=== PATIENT | female | born 1940 | race Caucasian/White ===

== ENCOUNTER → 2017-11-24 | Outpatient (CLI) | payer OTHER ==
[~2017-11-24] MED LIST: ALLEGRA ALLERG180 MG PO; CALCIUM 500 +1 EAC5 PO; COLACE100 MG PO; CYCLOBENZAPRINE10 MG PO; DIAZEPAM2 MG PO; DICLOFENAC SODI75 MG PO; EVISTA PO; HYDROCHLOROTHIA25 M2 PO; IBUPROFEN 800800 M1 PO; IRON PO; KLOR-CON 1010 MEQ PO; LEVOXYL175 MCG PO; MERCAPTOPURINE50 MG PO; METHADONE HCL 110 M1 PO; MOBIC7.5 MG PO; NEURONTIN 300300 M1 PO; NORCO 5-325 TA1 EACH PO; OXYCODONE HCL5 M1 PO; REQUIP 0.25 M0.25 MG PO; TRAMADOL 50 MG50 MG PO; VERAPAMIL E.R240 M1 PO; VITAMIN D1000 UNI1 PO
--- NOTE | 2017-12-13 08:16 | PAINCON ---
[address] [address] PAIN MANAGEMENT CONSULTATION Name: OSIEL WHALEN Room: [facility] NAILA IniguezChris#: [id number] Admission: 11/24/17 Attend Phys: Daniella Batista MD Discharge: Date of : 36 Report #: [id number] THIS REPORT FOR: //name// CC: Donn Mclean DATE OF SERVICE: 11/24/2017 PRIMARY CARE PHYSICIAN: Donn Olivera DO CHIEF COMPLAINT: Sciatic pain in the leg. HISTORY OF PRESENT ILLNESS: The patient is a 77-year-old female who has been referred to the Pain Clinic for evaluation of pain involving her right knee and back. The patient states that she has been having pain since about 2015. She had been treated on a regular basis with prednisone. Medication has been tapered. Since the time of taper, she has noted some worsening of pain and discomfort. It involves her low back as well as down into her knees. She rates it as a 7/10 today. It can rise to the level of 9. It does affect her ability to engage in activities of daily living. Pain is made worse when she is lying down. Seems somewhat improved when she sits up. Describes it as continuous, aching, pulling, throbbing, sharp and stabbing. The patient has had some pain in the left leg after a spiral fracture in 2011. She has been contemplating right hip replacement. She has tried ibuprofen with no significant improvement. Notes pain that is going down the outside of her leg as well as some pain on the inner aspect of her leg. She is having more difficulty ambulating because of the pain. She does have some problems with dental caries in the past. ALLERGIES: SULFA, CLARITIN. MEDICATIONS: 1. Calcium, vitamin D3 500 mg tablets, vitamin D 1000 units. 2. Voltaren 75 mg b.i.d. 3. Rosetta 180 mg. 4. Gabapentin 300 mg capsules, total of 600 mg t.i.d. 5. Hydrochlorothiazide 25 mg. 6. Ibuprofen 800 mg q.8 hours p.r.n. 7. Levothyroxine 0.175 mg daily. 8. Mercaptopurine 50 mg daily. 9. Potassium 10 mEq, total of 20 mEq t.i.d. 10. Evista 60 mg daily. 11. Ultram 50 mg q.8 hours p.r.n. 12. Verapamil ER 240 mg daily. 13. Iron 65 [place] [address] PAIN MANAGEMENT CONSULTATION Name: OSIEL WHALEN Room: [facility]#: [id number] Admission: 11/24/17 Attend Phys: Daniella Batista MD Discharge: Date of : 36 Report #: [id number] PAST MEDICAL HISTORY: 1. Thyroid problems, hypothyroidism. 2. Dizziness. 3. Hypertension. 4. Irregular heartbeat. 5. Hepatitis/jaundice. 6. Arthritis of the right hip, chronic right hip pain. 7. Generalized anxiety disorder. 8. Osteopenia. 9. Adenoma of the colon. 10. Hyperlipidemia. 11. Allergic rhinitis. PAST SURGICAL HISTORY: Cholecystectomy, tonsillectomy, ORIF left tibia 2011, left knee scope 2011. SOCIAL HISTORY: She is . 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 Positive cigarette smoking in the past, quit in 2009. Alcohol, rarely used. No substance abuse. REVIEW OF SYSTEMS: Twelve-point indicates fatigue, wears glasses, hearing loss, earaches, chronic sinus problems, sore throat/voice change, heart trouble, palpitations, loss of appetite, frequent diarrhea, frequent urination, heat intolerance, thyroid disease, joint pain, joint stiffness, weakness of the muscles around the joints, muscle cramps, difficulty walking, hair changes, lightheadedness, dizziness, numbness and tingling in the feet, past transfusions. RADIOLOGY: Pelvis AP only right hip. AP view of the pelvis, no acute pelvis or hip fracture is identified. Right hip demonstrate severe degeneration with complete loss of joint space with irregularity of the articular surface as well as subcondylar sclerosis and cyst formation. The left hip demonstrates evidence of narrowing of the medial joint space. Impression, severe right hip degenerative changes. No acute osseous trauma, injury identified. Right hip and pelvis, AP of the knees and tunnel view weightbearing demonstrate on the right knee significant tricompartmental degenerative changes. No significant fracture or dislocation. No subluxation. Valgus alignment. The lateral view has complete loss of joint space with a moderate knee joint effusion. The patella tracks laterally. The contralateral knee on AP has [id number] medial degenerative changes. These images taken were reviewed in the office of Kary Downs and Jackie, [place] [facility]. Fluoroscopic guidance performed on 05/16/2017 indicate a successful fluoroscopic-guided right hip therapeutic injection. The patient also had a fluoroscopic therapeutic injection dated 02/02/2017 [place] [address] PAIN MANAGEMENT CONSULTATION Name: OSIEL WHALEN Room: [facility] Petty#: [id number] Admission: 11/24/17 Attend Phys: Daniella Batista MD Discharge: Date of : 38 Report #: [id number] PAIN CLINIC ASSESSMENT: 1. This patient is being treated for osteoarthritis, particularly involving the hip. 2. Height 66 inches, weight 220 pounds, pain intensity 7-8. 3. Fall risk. The patient has fallen in the last 3 months. Does complain of some dizziness and vertigo, does need assistance with walking and standing, does feel that she can move around safely, is able to perform activities of daily living. 4. The patient is not on a blood thinner. 5. The patient is being treated for hypertension. 6. Opioid greater than 6 weeks. The patient is using tramadol medication p.r.n. 7. Functional assessment tool. 8. Recreational drug use. Denies recreational drug use. 9. Tobacco. The patient stopped use of tobacco in 2009. 10. Alcohol. The patient rarely uses alcoholic beverage. PHYSICAL EXAMINATION: GENERAL: The patient is a well-developed female. She is not in any appreciable distress. Speech is fluent. HEENT: Some edema in the lower eyelid area. Extraocular eye muscles intact. Nonicteric. Hearing generally within normal limits. NECK: Without adenopathy. Good range of motion. HEART: Negative for chest pain, palpitations, tachycardia. RESPIRATORY: Negative for cough, dyspnea. ABDOMEN: Nontender. EXTREMITIES: Upper extremity muscle strength is judged to be 5/5 for the major muscle groups of the upper extremity without significant neurologic changes. Coat Room Attendant strength within normal limits. Lower extremity, the patient with difficulty ambulating secondary to pain and discomfort involving the right hip. Flexion caused increased pain with some internal pain with rotation internally and externally in the hip. Pain radiation down into the leg and hip area with walking. Straight leg raise negative. IMPRESSION: 1. Right hip pain. 2. Thyroid disease. 3. History of dizziness. 4. Hypertension. 5. Irregular heartbeat. 6. History of hepatitis/jaundice. 7. History of ORIF left tibia in 2011. 8. Left knee surgery in 2011. RECOMMENDATIONS: The patient is considering having surgery[place] [address] PAIN MANAGEMENT CONSULTATION Name: KOBYOSIEL J Room: [facility].#: [id number] Admission: 11/24/17 Attend Phys: Daniella Batista MD Discharge: Date of : 38 Report #: [id number] will have the patient try gabapentin and note its efficacy. Possibility of the lowest amount of opioid, which might be beneficial at this juncture will be considered. She will continue with tramadol 50 mg 1 p.o. q.8 hours p.r.n. The patient will continue to monitor her GI tract in regards to chronic use of ibuprofen. States that her prednisone type medication has been decreased. This would be one of the reasons for the increased pain and discomfort, which she is experiencing. Hopefully, things will start to settle down and become less problematic. She will follow up in the Pain Clinic and we will reevaluate her for continued options and treatment for her chronic pain. <ELECTRONICALLY SIGNED> By: Daniella Batista MD 12/13/17 0816 [id number]. Wilder Batista MD /PMT
== END ==
LOC: M.PC 02:26
DX: E07.9 Disorder of thyroid, unspecified (principal); I10 Essential (primary) hypertension; I49.9 Cardiac arrhythmia, unspecified; K75.9 Inflammatory liver disease, unspecified; Z96.651 Presence of right artificial knee joint

== ENCOUNTER 2018-02-14 06:14 | Inpatient (IN) | payer OTHER ==
[2018-02-09 09:01] LABS: HEMATOCRIT 34.4 % (37.0-47.0); HEMOGLOBIN 11.9 gm/dL (12.0-15.0); MCH 32.9 pg (26.0-34.0); MCHC 34.6 g/dL (28.0-37.0); MCV 95.2 fL (80.0-100.0); MPV 8.4 fl. (7.2-11.1); RBC 3.62 mil/uL (4.20-5.00); RDW-CV 14.8 % (10.5-14.5); WBC 5.3 thou/uL (4.0-11.0)
[2018-02-09 09:06] LABS: PROTIME 9.9 Seconds (9.20-11.50)
[2018-02-09 09:11] LABS: ALBUMIN 3.1 g/dL (3.4-5.0); CALCIUM 9.2 mg/dL (8.5-10.1); CREATININE 0.7 mg/dL (0.6-1.3); POTASSIUM 3.3 mmol/L (3.5-5.1); TOTAL BILIRUBIN 0.6 mg/dL (<0.1-1.0); TOTAL PROTEIN 7.1 g/dL (6.4-8.2)
[2018-02-09 10:33] LABS: URINE BILIRUBIN NEGATIVE (Negative); URINE BLOOD NEGATIVE (Negative); URINE CLARITY CLEAR; URINE COLOR YELLOW; URINE GLUCOSE-RANDOM NEGATIVE (Negative); URINE KETONES NEGATIVE (Negative); URINE LEUKOCYTES-REFLEX NEGATIVE (Negative); URINE NITRITE-REFLEX NEGATIVE (Negative); URINE PROTEIN NEGATIVE (Negative); URINE SPECIFIC GRAVITY 1.015 (1.005-1.030); URINE UROBILINOGEN 0.2 E.U./dl (0.2-1.0)
--- NOTE | 2018-02-10 13:26 | EKG ---
[place] [address] ELECTROCARDIOGRAM REPORT Name: OSIEL WHALEN Room: [facility]#: [id number] Admission: Attend Phys: Otis Banegas Discharge: Date of : 38 Report #: [id number] THIS REPORT FOR: //name// [facility] Test Date: 2018-02-09 Test Time: 09:12:13 Pat Name: OSIEL WHALEN Department: Room: Gender: F Guest Relations Officer: : 1940 Requested By: Roberth Guzman Order Number: [id number] Reading MD: Edawrd Martinez Measurements Intervals [place] Rate: 73 P: 68 WV: 175 QRS: 11 QRSD: 95 T: 47 QT: 443 QTc: 489 Interpretive Statements Sinus rhythm Borderline prolonged QT interval No previous ECG available for comparison Electronically Signed On 02-10-2018 13:26:12 CDT by Edward Martinez [email or web address] <ELECTRONICALLY SIGNED> By: Edward Martinez MD, [facility] 02/10/18 1326 0912 09 Edward Martinez MD, FACC /EPI
[~2018-02-14] VITALS: Ht 170.2 cm; Wt 79.4 kg
[~2018-02-14 06:14] MED LIST changes: -COLACE100 MG PO; -CYCLOBENZAPRINE10 MG PO; -DIAZEPAM2 MG PO; -OXYCODONE HCL5 M1 PO; -REQUIP 0.25 M0.25 MG PO
[2018-02-14 09:50] VITALS: BP 137/68
[2018-02-14 15:30] VITALS: BP 109/46
--- NOTE | 2018-02-14 18:36 | NUR ---
ALERT AND ORIENTED X4. IV IS PATENT AND INFUSING. PAIN BEING MANAGED WITH IV AND PO PAIN MEDICATION. DENIES NAUSEA. LOUISA HOSE IN PLACE BILATERALLY. SCD'S IN PLACE. HEMOVAC IN PLACE AND DRAINING. VSS ON 3L O2. HOURLY ROUNDS HAVE BEEN MAINTAINED THROUGHOUT SHIFT. CALL LIGHT IS WITHIN REACH. NURSING WILL CONTINUE TO MONITOR.
[2018-02-14 20:00] VITALS: BP 107/53
[2018-02-15 00:42] VITALS: BP 123/61
[2018-02-15 04:00] VITALS: BP 117/61
[2018-02-15 04:58] LABS: HEMATOCRIT 26.7 % (37.0-47.0); HEMOGLOBIN 9.3 gm/dL (12.0-15.0)
--- NOTE | 2018-02-15 05:58 | NUR ---
PT SLEPT AT INTERVALS DURING THE NIGHT, PT C/O PAIN IN RIGHT HIP AND LEG, PRN PAIN MEDICATIONS, PT USED BEDPAN, PT UNABLE TO VOID, PER JENKINS REMOVAL PROTOCOL PT WAS STRAIGHT CATHED THIS AM FOR BLADDER SCAN 760ML. PT RESTING IN BED, DRSG C/D/I TO RIGHT HIP, CALL LIGHT IN REAC, BED ALARM ON FOR SAFETY, WILL CONTINUE TO MONITOR
[2018-02-15 08:45] VITALS: BP 103/50
--- NOTE | 2018-02-15 16:59 | NUR ---
SHIFT NOTE - IV IN LEFT FOREARM INFILTRATED THIS AFTERNOON. ORDER OBTAINED TO DC IVF AND OK TO LEAVE SL OUT. TOLERATING PO FLUIDS WELL. ONLY VOIDED ABOUT 50ML IN 6 HOURS. BLADDER SCANNED AND FOUND TO HAVE 620ml. PT ABLE TO VOID ADDITIONAL 150ML. OK TO PUSH PO FLUIDS AND REASSESS PRN.
[2018-02-15 17:24] VITALS: BP 147/53
--- NOTE | 2018-02-15 17:40 | NUR ---
UNABLE TO SEE PT.THIS AFTERNOON, THERAPY WAS WORKING WITH HER.
[2018-02-15 20:00] VITALS: BP 132/57
[2018-02-16 04:08] LABS: HEMATOCRIT 26.6 % (37.0-47.0); HEMOGLOBIN 9.2 gm/dL (12.0-15.0)
[2018-02-16 04:28] VITALS: BP 145/59
--- NOTE | 2018-02-16 04:35 | NUR ---
PATIENT ORIENTED X4. MEDICATED FOR PAIN WITH PARTIAL EFFECT REPORTED. PATIENT STATES THAT PAIN FEELS LIKE SCIATIC PAIN OR MUSCLE SPASMS. DRESSING TO RIGHT HIP IS CLEAN, DRY AND INTACT. UP WITH ASSIST X1 TO BSC. VITALS STABLE ON ROOM AIR. WILL CONTINUE TO MONITOR.
[2018-02-16] MEDS ORDERED: CYCLOBENZAPRINE10 MG PO (08:59)
[2018-02-16] MEDS ORDERED: REQUIP 0.25 M0.25 MG PO (08:59)
[2018-02-16] MEDS ORDERED: DIAZEPAM2 MG PO (08:59)
[2018-02-16 09:18] VITALS: BP 130/67; BP 135/62
--- NOTE | 2018-02-16 12:30 | NUR ---
SPOKE WITH PT.AND IN ROOM. IS VERY INTERESTED IN HER GOING TO SNF. HE SAID THEY HAVE ALOT OF STAIRS IN THEIR HOME AND HE FEELS IT WOULD BE REALLY HARD ON HER AND HIM TO NEGOTIATE THESE. PT.AGREEABLE ALSO. SAID SHE HAS BEEN TO [facility] BEFORE AND WOULD LIKE TO GO BACK THEIR. EXPLAINED HER INSURANCE WILL HAVE TO AUTHORIZE HER STAY. SHE IS CONCERNED SHE WAS ADDICTED TO HER PAIN MEDICATION BEFORE WHEN SHE WAS THERE. SHE HAS TOLD HER DR.ABOUT IT. SHE HAD NO IDEA SHE WAS BECOMING ADDICTED AND DOES NOT WANT THAT TO HAPPEN AGAIN. REASSURED HER I WOULD PASS THIS ON TO HER NURSE AND SHE WILL DISCUSS IT WITH HIM. REFERRAL INFORMATION PRINTED AND FAXED TO [facility] BY VARUN RICHEY.
[2018-02-16 15:49] VITALS: BP 122/52
--- NOTE | 2018-02-16 17:08 | NUR ---
ASSUMED CARE OF PATIENT AFTER MORNING REPORT. ALERT AND ORIENTED X4. ASSESSMENT COMPLETED AND CHARTED. VSS ON ROOM AIR. PATIENT HAS LOUD COMPLAINTS OF PAIN UPON MOVEMENT, MANAGED WITH PAIN MEDICATION. WORKED WITH THERAPY AND OT TODAY, THEY RECOMMEND [facility]. PATIENT RESTING COMFORTABLYIN BED AT THIS TIME WITH HISBAND AT BEDSIDE. HOURLY ROUNDS MAINTAINED, CALL LIGHT WITHIN REACH, NURSING WILL CONTINUE TO MONITOR.
[2018-02-16 20:00] VITALS: BP 134/65
[2018-02-17 01:38] VITALS: BP 135/64
--- NOTE | 2018-02-17 04:47 | NUR ---
PATIENT ALERT AND ORIENTED X4. RESTING QUIETLY THIS AM ON HOURLY ROUNDS. MEDICATED FOR PAIN WITH GOOD EFFECT REPORTED. UP WITH ASSIST X1. DRESSING TO RIGHT HIP IS CLEAN, DRY AND INTACT. VITALS STABLE ON ROOM AIR. WILL CONTINUE TO MONITOR.
[2018-02-17] MEDS ORDERED: OXYCODONE HCL5 M1 PO (07:41)
[2018-02-17 07:45] VITALS: BP 133/64
--- NOTE | 2018-02-17 11:00 | NUR ---
CALLED NIGHAT/'Lance MANCRISTIANE TO INFORM WE HAVE DISCHARGE ORDERS FOR PT. SHE SAID KAREN/AMBREEN IS COMING TO VISIT WITH PT.AND SOON.
[2018-02-17] MEDS ORDERED: COLACE100 MG PO (11:01)
[2018-02-17 11:09] VITALS: BP 133/64
[2018-02-17 11:12] VITALS: BP 133/64
--- NOTE | 2018-02-17 12:22 | NUR ---
KAREN/WANG HAS BEEN HERE. SHE SAID THEY WILL HAVE THEIR WC VAN PICK PT.UP AT 3:30. CHART COPIED TO GO WITH PT. NURSING TO CALL REPORT. NOTIFIED PT.AND OF TRANSPORT TIME.
--- NOTE | 2018-02-17 14:13 | NUR ---
FAXED DC ORDERS TO [facility]. FAX [phone] CALLED SPOKE WITH ADMISSIONS AT [facility]. FACILITY RECIEVED FAX WE ARE GOOD TO GO. DC TODAY .
[2018-02-17 17:31] VITALS: BP 133/64
--- NOTE | 2018-02-17 18:03 | NUR ---
PATIENT LEFT UNIT AT 1530. ALERT AND ORIENTED X4. UP WITH ASSIST X1 WITH WALKER AND GAIT BELT. NO IV TO DC AT DISCHARGE. PAIN BEING MANAGED WITH PO PAIN MEDICATION. DENIES NAUSEA. ATTENDED PHYSICAL THERAPY TWICE THIS SHIFT. ALL PERSONAL ITEMS LEFT WITH PATIENT. DISCHARGE INSTRUCTIONS, AND PRESCIPTIONS SENT WITH PATIENT TO FACILITY. VSS ON ROOM AIR. HOURLY ROUNDS HAVE BEEN MAINTAINED THROUGHOUT SHIFT. LEFT WITH TRANSPORTER VIA WHEEL CHAIR VAN.
--- NOTE | 2018-02-28 12:38 | OP ---
[facility] [address] [place] [address] OPERATIVE REPORT Name: OSIEL WHALEN Indira Room: [address] IN M.R.#: [id number] Admission: 02/14/18 Attend Phys: Otis Banegas Discharge: 02/17/18 Date of : 36 Report #: [id number] THIS REPORT FOR: //name// CC: Donn Andrew DATE OF SERVICE: 02/14/2018 PREOPERATIVE DIAGNOSIS: Right hip osteoarthritis. POSTOPERATIVE DIAGNOSIS: Right hip osteoarthritis. PROCEDURE: Right total hip arthroplasty. SURGEON: Roberth Guzman II, DO DATA ENTRY CLERK: OLMAN Hernandez. ANESTHESIA: General endotracheal. ESTIMATED BLOOD LOSS: 250 mL. ANTIBIOTICS: Ancef preoperatively. DRAINS: Medium Hemovac. COMPLICATIONS: None. CONDITION OF THE PATIENT: Stable to recovery room. IMPLANTS: Listed in the operative record and progress note. BRIEF HISTORY: The patient was seen in the preoperative area. Preoperative H and P was performed. Site was marked. Questions were answered. Risks and benefits were discussed with the patient in detail about surgery. The patient wished to proceed and assumed all risks. DESCRIPTION OF PROCEDURE: The patient was taken to the operative suite, placed supine on the operative table and given appropriate anesthesia. The patient's operative hip was placed on the [place] table leg kuhn and sterilely prepped and draped in the supine position. Surgery began by longitudinal incision over the anterior aspect of the hip. This was carried down through the subcutaneous tissues. A small bhavesh was made in the tensor fascia. It was then split along with its fibers and retracted laterally. An H capsulotomy was then performed and careful hemostasis was maintained with electrocautery [place] [address] OPERATIVE REPORT Name: OSIEL WHALEN Room: [address] [place].#: [id number] Admission: 02/14/18 Attend Phys: Otis Banegas Discharge: 02/17/18 Date of : 38 Report #: [id number] head and neck cutting alignment guide was then checked with fluoroscopic guidance. Appropriate cut was made to the head and neck and this was then removed. Attention was turned to the acetabulum. Excess labrum was removed. It was then reamed in sequential fashion up to appropriate size. This was shown to have excellent bleeding bone and excellent position on fluoroscopic guidance. The acetabular cup was then malleted in position and secured with cancellous screws. Metal liner was then applied. The patient's leg was then rotated and extended to the [place] table to expose the femur. It was then broached in sequential fashion up to the appropriate size. The appropriate neck was then trialed with an appropriate head length and shown to have excellent fit and fill and excellent stability of the hip throughout all range of motion. These trials were removed. The final stem was then malleted in position, and a final head and neck was then malleted into position. It was reduced in appropriate fashion, checked with the C-arm for appropriate leg length and shown to have excellent leg length throughout all range of motion on exam without evidence of dislocation on shuck testing. The wound was then copiously irrigated. Hemostasis was maintained with electrocautery and Aquamantys. Pain cocktail was injected. PRP gel was sprayed throughout the internal aspects of the hip. The H capsulotomy was then closed with #1 Vicryl in a [id number]-ia-ggnmr fashion. Tensor fascia was closed with #1 Vicryl in a running fashion. Skin was closed with 2-0 Vicryl and a running 3-0 Monocryl. Dermabond and sterile dressing applied. The patient transported to recovery room in stable condition. Counts were correct throughout the procedure. <ELECTRONICALLY SIGNED> By: Roberth Guzman II, DO 02/28/18 1238 1232 [id number] Guzman II, DO /nt
== END 2018-02-17 15:30 | DRG 470 ==
LOC: M.PRE 06:14 → M.TBA 08:36 → M.ORTHSURG 08:36 → M.PRE 12:05 → M.ORTHSURG 15:07
PROVIDERS: Orthopaedic Surgery; ADMIT Internal Medicine
PROC: 0SR90JZ Replacement of Right Hip Joint with Synthetic Substitute, Open Approach (ICD-10-PCS; principal; 2018-02-14)
DX: M16.11 Unilateral primary osteoarthritis, right hip (principal); E03.9 Hypothyroidism, unspecified; G89.29 Other chronic pain; I10 Essential (primary) hypertension; Z90.49 Acquired absence of other specified parts of digestive tract; Z88.2 Allergy status to sulfonamides; Z79.899 Other long term (current) drug therapy